=== PATIENT | male | born 1925 | race Caucasian/White ===

== ENCOUNTER 2017-01-12 09:10 | Emergency (ER) | payer MEDICARE, OTHER ==
--- NOTE | 2017-01-12 09:16 | ER Document Report ---
ED General - General Stated Complaint: TESTICULAR PAIN Time Seen by Provider: 01/12/17 09:15 Notes: This is an 89-year-old male who presents emergency department with chief complaint of pain in the lower abdomen and swelling in the testicle. Patient states that he knows he has a hernia. Does not know if it is a femoral or inguinal hernia. Has not been able to have surgery because he had heart problems. He had an aortic valve replacement 1 year ago in [place] at [facility]. Has followed up with his radiology transcriptionist and has been given permission to proceed with surgery. Is awaiting a consult from the surgeon in [place]. States that he twisted the wrong way yesterday and felt a pop. Had immediate swelling noted in the right groin area. Pain is rated as an 8/10 on a numeric pain scale. subsequent nausea and vomiting 1. Very painful to ambulate. Had to come in by ambulance. Denies any fever, chills, sweats. No back pain. Has not felt like eating today. No bowel movement this morning. Patient has a history of diabetes, hypertension, peripheral neuropathy , aortic stenosis status post aortic valve repair, skin cancer. Had previous surgical history remarkable for emergency cholecystectomy, aortic valve repair, coronary stenting in the [place], AICD with pacemaker. Skin cancer surgery. Denies being on any blood thinners at this time. TRAVEL OUTSIDE OF THE [place] IN LAST 30 DAYS: No - HPI Onset: Yesterday Onset/Duration: Gradual Quality of pain: Pressure Severity: Moderate Associated symptoms: Nausea, Vomiting Exacerbated by: Standing, Movement, Walking Relieved by: Supine, Remaining still - Related Data Allergies/Adverse Reactions: No Known Allergies Allergy (Unverified 06/30/11 11:31) Home Medications: Current Home Medications Alfuzosin HCl [Alfuzosin HCl ER] 10 mg PO DAILY 01/12/17 [History] Furosemide 20 mg PO PRN PRN 01/12/17 [History] Levothyroxine Sodium [Synthroid] 125 mcg PO DAILY 01/12/17 [History] Rosuvastatin Calcium [Crestor] 40 mg PO QPM 01/12/17 [History] Past Medical History - Social History Smoking Status: Smoker,Current Status Unk Frequency of alcohol use: None Lives with: Family Family History: None, Reviewed & Not Pertinent - Past Medical History Cardiac Medical History: Reports: Hx Congestive Heart Failure, Hx Heart Attack - 06/23, Hx Hypercholesterolemia, Hx Hypertension - medicated Pulmonary Medical History: Denies: Hx Asthma Neurological Medical History: Denies: Hx Cerebrovascular Accident, Hx Seizures Endocrine Medical History: Reports: Hx Diabetes Mellitus Type 2 GI Medical History: Denies: Hx Hepatitis, Hx Hiatal Hernia, Hx Ulcer Infectious Medical History: Denies: Hx Hepatitis Past Surgical History: Reports: Hx Cardiac Surgery - pacemaker, defib, Hx Pacemaker. Denies: Hx Open Heart Surgery - Immunizations Hx Diphtheria, Pertussis, Tetanus Vaccination: Yes Review of Systems - Review of Systems Constitutional: No symptoms reported EENT: No symptoms reported Cardiovascular: No symptoms reported Respiratory: No symptoms reported Gastrointestinal: See HPI, Abdominal pain, Nausea, Vomiting Genitourinary: Other - Swollen scrotum which is chronic. Not any worse than usual by patient's report Male Genitourinary: No symptoms reported Musculoskeletal: No symptoms reported Skin: No symptoms reported Hematologic/Lymphatic: No symptoms reported Neurological/Psychological: Other - Bilateral peripheral neuropathy Physical Exam - Vital signs Vitals: Temp Pulse Resp BP Pulse Ox 98.3 F 101 H 18 161/87 H 96 01/12/17 09:20 01/12/17 09:20 01/12/17 09:20 01/12/17 09:20 01/12/17 09:20 Interpretation: Normal - General General appearance: Appears well, Alert - HEENT Head: Normocephalic, Atraumatic Eyes: Normal Pupils: PERRL - Respiratory Respiratory status: No respiratory distress Chest status: Nontender Breath sounds: Normal Chest palpation: Normal - Cardiovascular Rhythm: Regular Heart sounds: Normal auscultation Murmur: No - Abdominal Inspection: Normal Distension: Distended - Partly distended in the right lower abdomen Bowel sounds: Normal Tenderness: Tender, Other - There is significant swelling noted in the right inguinal area with bowel sounds present signifying hernia. It appears to be a nonreducible femoral versus inguinal hernia. There is swelling noted of the scrotum. Organomegaly: No organomegaly - Back Back: Normal, Nontender - Extremities General upper extremity: Normal inspection, Nontender, Normal color, Normal ROM , Normal temperature General lower extremity: Normal inspection, Nontender, Normal color, Normal ROM , Normal temperature, Normal weight bearing. No: Osiel's sign - Neurological Neuro grossly intact: Yes Cognition: Normal Orientation: AAOx4 [place] Coma Scale Eye Opening: Spontaneous [place] Coma Scale Verbal: Oriented [place] Coma Scale Motor: Obeys Commands [place] Coma Scale Total: 15 Speech: Normal Motor strength normal: LUE, RUE, LLE, RLE Sensory: Normal - Psychological Associated symptoms: Normal affect, Normal mood - Skin Skin Temperature: Warm Skin Moisture: Dry Skin Color: Normal Course - Re-evaluation Re-evalutation: 01/12/17 10:04 Is an 89-year-old male with apparent hernia. Was unable to reduce without pain meds. Patient initially did not want pain medication but will try and give him some morphine and reattempt reduction. Will consult with surgery. If patient needs surgery patient requests transfer to [place]. 01/12/17 10:09 Dr. Cabezas with general surgery is still kind enough to come down and evaluate patient at this time. Initiating transfer process but Dr. Cabezas is going to provide some input as well. 01/12/17 10:43 Dr. Cabezas was able to reduce the hernia. Will reconsult with surgeon in [place] to see if they would still like to proceed with transfer. Anticipate patient will need urgent follow-up anyway and it may be best to go ahead and proceed with transfer but we will find out from the receiving hospital as well as patient preference at this time. 01/12/17 11:[address] Posada's office. They would like to see patient in the office rather than being admitted to the hospital. Will discharge at this time and have patient proceed directly to the surgeon's office in [place]. - Vital Signs Vital signs: Temp Pulse Resp BP Pulse Ox 98.3 F 101 H 18 161/87 H 96 01/12/17 09:20 01/12/17 09:20 01/12/17 09:20 01/12/17 09:20 01/12/17 09:20 - Laboratory Result Diagrams: 01/12/17 10:13 01/12/17 10:13 Laboratory results interpreted by me: 01/12/17 10:13 RBC 5.77 H RDW 14.6 H Plt Count 128 L Seg Neutrophils % 84.4 H Lymphocytes % 8.9 L Absolute Neutrophils 8.4 H - EKG Interpretation by Me When compared to previous EKG there are: No significant change, Other Additional EKG results interpreted by me: 10/31/17 10:36 This is an atrial sensed, ventricular paced rhythm with a rate of 89. No signs of ischemia and. No change from previous. Discharge - Discharge Clinical Impression: Incarcerated right inguinal hernia Condition: Good Disposition: HOME, SELF-CARE Instructions: Hernia (PENDING SALE TO [facility]) Additional Instructions: Please leave the emergency department and go directly to Dr. Posada's office in [place]. The address is [address] [place] [address]. Their phone number is [phone]. Referrals: AXEL YOUNG MD [Primary Care Provider] - Follow up as needed CHRIST POSADA MD [NO LOCAL MD] - Follow up as needed
[2017-01-12] MEDS ORDERED: NORMAL SALINE 500 ML IV ONE (09:48)
[2017-01-12] MEDS ORDERED: MORPHINE SULFATE 10 MG/ML INJ IV ONE (09:58)
[2017-01-12] MEDS ORDERED: ONDANSETRON HCL INJ/PF 4 MG/2 ML SDV IV ONE (09:58)
[2017-01-12 10:36] LABS: ABSOLUTE LYMPHOCYTES (AUTO) 0.9 10^3/uL (0.5-4.7); ABSOLUTE MONOCYTES (AUTO) 0.6 10^3/uL (0.1-1.4); ABSOLUTE NEUT (AUTO) 8.4 10^3/uL (1.7-8.2); BASOPHILS % (AUTO) 0.2 % (0-2); EOSINOPHILS % (AUTO) 0.1 % (0-6); HEMATOCRIT 49.5 % (37.9-51.0); HEMOGLOBIN 16.6 g/dL (13.5-17.0); HGB HCT DIFFERENCE 0.3; LYMPHOCYTES % (AUTO) 8.9 % (13-45); MEAN CORPUSCULAR HEMOGLOBIN 28.8 pg (27.0-33.4); MEAN CORPUSCULAR HGB CONC 33.6 g/dL (32.0-36.0); MEAN CORPUSCULAR VOLUME 86 fl (80-97); MONOCYTES % (AUTO) 6.4 % (3-13); RED BLOOD COUNT 5.77 10^6/uL (4.35-5.55); RED CELL DISTRIBUTION WIDTH 14.6 % (11.5-14.0); SEGMENTED NEUTROPHILS % (AUTO) 84.4 % (42-78)
[2017-01-12 10:41] LABS: PROTHROMBIN TIME 13.4 SEC (11.4-15.4)
[2017-01-12 10:42] LABS: PARTIAL THROMBOPLASTIN TIME 32.2 SEC (23.5-35.8)
--- NOTE | 2017-01-12 10:45 | PDOC CONSULTATION ---
Consultation Consult Date: 01/12/17 Attending physician:: ER PROVIDER Consult reason:: Right inguinal hernia, incarcerated History of Present Illness Admission Date/PCP: AXEL YOUNG MD Patient complains of: right groin pain History of Present Illness: JAYNA CONCEPCION is a 89 year old male who presents to [facility] ER with acute onset of irreducible right inguinal hernia. This has been known by the patient and has been evaluated by general surgery. Delay of repair at that time given his significant cardiac cormorbidities, requiring Coronary stenting and repair of his aortic valve now over 1 year ago. Notable production of the hernia and its irreducibility started yesterday am. Overnight he had worsening pain and 2 episodes of emesis. When evaluated in the ER he has a large defect of the abdominal wall at the neck of the hernia and no signs of SIRS. Hernia was reduced in ER with immediate improvement of symptomatology. He was inline to be assessed by General Surgery in [place] within the next 2 weeks but will require an evaluation sooner. Currently denies any fever, chest pain, shortness of breath, headache, dizziness or loss of consciousness. Episodes of emesis x2, last episode this am and none since. Last BM today, formed. Past Medical History Cardiac Medical History: Reports: Congestive Heart Failure, Myocardial Infarction - 06/23, Hyperlipidema, Hypertension - medicated Pulmonary Medical History: Denies: Asthma Neurological Medical History: Denies: Seizures Endocrine Medical History: Reports: Diabetes Mellitus Type 2 GI Medical History: Reports: Other - Right inguinal hernia Denies: Hepatitis, Hiatal Hernia Psychiatric Medical History: Reports: None Hematology: Denies: Anemia, Sickle Cell Disease Infectious Medical History: Reports: None Past Surgical History Past Surgical History: Reports: Cardiac Catheterization - and stenting, Pacemaker, Valve Replacement - aortic valve, Other - Emergent Cholecystectomy Social History Information Source: Patient Lives with: Family Smoking Status: Smoker,Current Status Unk Frequency of Alcohol Use: Rare Hx Recreational Drug Use: No Hx Prescription Drug Abuse: No Family History Family History: None, Reviewed & Not Pertinent Parental Family History Reviewed: Yes Children Family History Reviewed: Yes Sibling(s) Family History Reviewed.: Yes Medication/Allergy Home Medications: Aspirin [Aspirin 81 mg Chewable Tablet] 81 mg PO DAILY 06/30/11 Bimatoprost [Lumigan 0.03% Oph Soln 2.5 Ml] 1 drop QHS 06/30/11 Brimonidine Tartrate [Alphagan 0.2% Oph Soln 5 Ml Bottle] 1 drop TID 06/30/11 Dorzolamide HCl/Timolol Maleat [Dorzolamide-Timolol Eye Drops] 10 ml OP BID 28/02 Lisinopril [Prinivil 10 mg Tablet] 10 mg PO QPM 06/30/11 Metoprolol Succinate [Toprol Xl] 50 mg PO DAILY 06/30/11 Alfuzosin HCl [Alfuzosin HCl ER] 10 mg PO DAILY 01/12/17 Furosemide 20 mg PO PRN PRN 01/12/17 Levothyroxine Sodium [Synthroid] 125 mcg PO DAILY 01/12/17 Rosuvastatin Calcium [Crestor] 40 mg PO QPM 01/12/17 Allergies/Adverse Reactions: No Known Allergies Allergy (Unverified 06/30/11 11:31) Review of Systems Constitutional: ABSENT: fatigue, fever(s), headache(s), night sweats, weakness Eyes: ABSENT: visual disturbances Ears: ABSENT: hearing changes Nose, Mouth, and Throat: ABSENT: mouth pain, sore throat Cardiovascular: ABSENT: chest pain, orthropnea, palpitations Respiratory: ABSENT: cough, dyspnea Gastrointestinal: PRESENT: abdominal pain, nausea, vomiting. ABSENT: constipation, diarrhea, dysphagia, heartburn Genitourinary: ABSENT: dysuria, hematuria Neurological: ABSENT: confusion, convulsions, dizziness, numbness, paresthesias Physical Exam Vital Signs: Temp Pulse Resp BP Pulse Ox 98.3 F 101 H 18 161/87 H 96 01/12/17 09:20 01/12/17 09:20 01/12/17 09:20 01/12/17 09:20 01/12/17 09:20 Intake & Output 01/11/17 01/12/17 01/13/17 06:59 06:59 06:59 Weight 104.326 kg General appearance: PRESENT: no acute distress, well-developed Head exam: PRESENT: atraumatic, normocephalic Eye exam: PRESENT: conjunctiva pink. ABSENT: conjunctival injection Mouth exam: PRESENT: moist, neck supple, tongue midline Neck exam: ABSENT: lymphadenopathy, thyromegaly, tracheal deviation Respiratory exam: PRESENT: clear to auscultation michelle, symmetrical, unlabored. ABSENT: accessory muscle use, tachypnea Cardiovascular exam: PRESENT: RRR Vascular exam: PRESENT: normal capillary refill GI/Abdominal exam: PRESENT: distended - abdomen assessed post reduction with distension but pain improved, guarding - focal at hernia, hernia - right inguinal reduced, soft, other. ABSENT: rebound, rigid, tenderness Extremities exam: ABSENT: calf tenderness, pedal edema, tenderness Neurological exam: PRESENT: alert, awake, oriented to person, oriented to place , oriented to time, oriented to situation, CN II-XII grossly intact Psychiatric exam: ABSENT: agitated, anxious Assessment & Plan - Diagnosis (1) Right inguinal hernia Is this a current diagnosis for this admission?: Yes Plan: Reduction performed at bedside Pain improved Will still require repair of the hernia to be performed in the near future to prevent recurrent incarceration Was in process of transfer given initial irreducibility, ER in consult with receiving surgeon for planning given patient's significant cardiac history, would still benefit from procedure to be performed at site where valve replacement was performed and advanced cardiac intervention availability Patient has inguinal truss at home and was advised to use this regularly until hernia repaired With any recurrence of incarcernation to represent to the ER/Clinic for reduction, reduction techniques reviewed with patient and family/caregiver
[2017-01-12 11:05] LABS: ALANINE AMINOTRANSFERASE 26 U/L (21-72); ALBUMIN 3.9 g/dL (3.5-5.0); ALKALINE PHOSPHATASE 71 U/L (38-126); ANION GAP 12 (5-19); ASPARTATE AMINO TRANSFERASE 26 U/L (17-59); BILIRUBIN,DIRECT 0.3 mg/dL (0.0-0.4); BILIRUBIN,TOTAL 1.1 mg/dL (0.2-1.3); BLOOD UREA NITROGEN 20 mg/dL (7-20); CALCIUM 9.2 mg/dL (8.4-10.2); CARBON DIOXIDE 28 mmol/L (22-30); CHLORIDE 99 mmol/L (98-107); CREATININE RESULT 1.19 mg/dL (0.52-1.25); GLUCOSE 225 mg/dL (75-110); POTASSIUM 4.7 mmol/L (3.6-5.0); SODIUM 139.4 mmol/L (137-145); TOTAL PROTEIN 6.8 g/dL (6.3-8.2)
[2017-01-12 11:36] VITALS: BP 115/66
--- NOTE | 2017-01-12 15:19 | EKG REPORT ---
SEVERITY:- ABNORMAL ECG - ATRIAL-SENSED VENTRICULAR-PACED RHYTHM : Confirmed by: Mic Vital 12-Jan-2017 15:18:34
== END 2017-01-12 11:37 | disposition home or self-care (01) ==
LOC: ER 09:10
DX: K40.90 Unilateral inguinal hernia, without obstruction or gangrene, not specified as recurrent (principal); N50.819 Testicular pain, unspecified; N50.89 Other specified disorders of the male genital organs; F17.200 Nicotine dependence, unspecified, uncomplicated; Z79.899 Other long term (current) drug therapy
CPT/HCPCS: 93005; 99284; 36415; 83605; 85025; 85610; 85730; 80053; 84484; 93010; J2270; J2405; J7040